=== PATIENT | male | born 1960 | race Caucasian/White ===

== ENCOUNTER 2016-08-23 19:41 | Inpatient (IN) | payer MEDICARE, BC ==
[~2016-08-23] VITALS: Ht 160 cm; Wt 72.1 kg
[~2016-08-23 19:41] MED LIST: ASPI81 PO; ATOR40TA28 PO; CLOP75 PO; HYDR50 PO; INSLAN SQ
[2016-08-23] MEDS ORDERED: ONDANSETRON HCL 4 MG/2 ML VIAL IVP ONE ×2 (20:45→23:00)
[2016-08-23 20:53] LABS: BASOPHILS % (AUTO) 0.6 % (0.0-2.0); EOSINOPHILS % (AUTO) 2.6 % (1.0-6.0); LYMPHOCYTES # (AUTO) 1.8 K/uL (1.0-4.8); LYMPHOCYTES % (AUTO) 19.3 % (22.0-44.0); MEAN CORPUSCULAR HGB CONC 34.3 G/dL (31.0-37.0); MEAN CORPUSCULAR VOLUME 99 fL (80-100); MONOCYTES # (AUTO) 1.2 K/uL (0.1-1.0); MONOCYTES % (AUTO) 12.6 % (2.0-9.0); NEUTROPHILS # (AUTO) 6.1 K/uL (1.8-7.7); NEUTROPHILS % (AUTO) 64.9 % (40.0-70.0); PLATELET COUNT (AUTO) 244 K/uL (150-450); RED BLOOD CELL COUNT(AUTO) 3.23 MIL/uL (4.50-5.90); RED CELL DISTRIBUTION WIDTH 14.4 % (11.5-14.5); WHITE BLOOD COUNT (AUTO) 9.3 K/uL (4.5-11.0)
[2016-08-23 21:08] LABS: CALCIUM, TOTAL 8.8 mg/dL (8.8-10.5); CREATININE 8.32 mg/dL (0.60-1.30); POTASSIUM 4.4 mmol/L (3.5-5.1)
[2016-08-23 21:13] LABS: ALBUMIN 3.7 g/dL (3.4-5.0); BILIRUBIN,TOTAL 0.5 mg/dL (0.1-1.0); TOTAL PROTEIN, SERUM 8.4 g/dL (6.4-8.2)
[2016-08-23] MEDS ORDERED: HYDROmorphone 2 MG/ML SYRINGE IVP ONE (22:00)
[2016-08-23] MEDS ORDERED: CloNIDine HCL 0.1 MG TABLET PO PRN (23:15)
[2016-08-23] MEDS ORDERED: ACETAMINOPHEN 325 MG TABLET PO PRN (23:15)
[2016-08-23] MEDS ORDERED: MAGNESIUM HYDROXIDE SUSPENSION 30 ML UDCUP PO PRN (23:15)
[2016-08-23] MEDS ORDERED: MORPHINE SULFATE 2 MG/ML SYRINGE IVP PRN (23:15)
[2016-08-23] MEDS ORDERED: OxyCODONE HCL/ACETAMINOPHEN 5-325 MG TABLET PO PRN (23:15)
[2016-08-23] MEDS ORDERED: ALBUTEROL SULFATE 2.5 MG/0.5 ML NEB SOLUTION NEB PRN (23:15)
[2016-08-23] MEDS ORDERED: ONDANSETRON HCL 4 MG/2 ML VIAL IVP PRN (23:15)
[2016-08-23] MEDS ORDERED: DEXTROSE 50%-WATER 25 GM/50 ML SYRINGE IVP PRN (23:30)
[2016-08-24 00:16] LABS: GLUCOSE,POINT OF CARE 296 MG/DL (70-110)
[2016-08-24] MEDS: INSULIN ASPART 100 UNITS/ML SQ PRN ×4 (00:24→17:56)
[2016-08-24 06:46] LABS: GLUCOSE,POINT OF CARE 249 MG/DL (70-110)
[2016-08-24 08:19] VITALS: BP 160/76
[2016-08-24] MEDS ORDERED: HEPARIN SODIUM,PORCINE 5,000 UNITS/ML VIAL SQ SCH ×2 (09:00)
[2016-08-24] MEDS ORDERED: PANTOPRAZOLE SODIUM 40 MG DR TABLET PO SCH (09:00)
[2016-08-24] MEDS ORDERED: ASPIRIN 81 MG CHEWABLE TABLET PO SCH (09:00)
[2016-08-24] MEDS ORDERED: HydrALAZINE HCL 25 MG TABLET PO SCH (09:00)
[2016-08-24] MEDS ORDERED: CLOPIDOGREL BISULFATE 75 MG TABLET PO SCH (09:00)
[2016-08-24] MEDS ORDERED: DOCUSATE SODIUM 100 MG CAPSULE PO SCH (09:00)
[2016-08-24 11:28] VITALS: BP 181/82
[2016-08-24 15:59] VITALS: BP 157/73
[2016-08-24 20:07] LABS: GLUCOSE COMMENT 1 Received Meds; GLUCOSE,POINT OF CARE 270 MG/DL (70-110)
[2016-08-24 20:07] LABS: GLUCOSE COMMENT 1 Received Meds; GLUCOSE,POINT OF CARE 275 MG/DL (70-110)
[2016-08-24] MEDS ORDERED: ATORVASTATIN CALCIUM 20 MG TABLET PO SCH (21:00)
== END 2016-08-24 19:00 | disposition home or self-care (01) | DRG 682 ==
LOC: EMS 19:43 → 5N 08-24 06:12
PROVIDERS: ADMIT Internal Medicine; ATTEND Internal Medicine
DX: I12.0 Hypertensive chronic kidney disease with stage 5 chronic kidney disease or end stage renal disease (principal); N18.6 End stage renal disease; I69.351 Hemiplegia and hemiparesis following cerebral infarction affecting right dominant side; R51 Headache; E11.22 Type 2 diabetes mellitus with diabetic chronic kidney disease; E78.00 Pure hypercholesterolemia, unspecified; E11.65 Type 2 diabetes mellitus with hyperglycemia; I69.392 Facial weakness following cerebral infarction; Z99.2 Dependence on renal dialysis; Z79.02 Long term (current) use of antithrombotics/antiplatelets; Z79.899 Other long term (current) drug therapy; Z79.4 Long term (current) use of insulin; Z79.82 Long term (current) use of aspirin; Z86.73 Personal history of transient ischemic attack (TIA), and cerebral infarction without residual deficits
CPT/HCPCS: 70450; 70551; 82962; 87081; 93005; 96374; 96375; 96376; 99285; J1170; J1644; J1815; J2405

== ENCOUNTER 2016-08-27 12:12 | Emergency (ER) | payer MEDICARE, BC ==
[~2016-08-27] VITALS: Ht 160 cm; Wt 72.7 kg
[~2016-08-27 12:12] MED LIST changes: -CLOP75 PO
[2016-08-27 12:16] VITALS: BP 169/65
[2016-08-27 12:27] LABS: GLUCOSE,POINT OF CARE 163 MG/DL (70-110)
== END 2016-08-27 15:01 | disposition left against medical advice (07) ==
LOC: EMS 12:15
DX: M54.5 Low back pain (principal); I10 Essential (primary) hypertension; E78.00 Pure hypercholesterolemia, unspecified; E11.29 Type 2 diabetes mellitus with other diabetic kidney complication; N28.9 Disorder of kidney and ureter, unspecified; Z86.73 Personal history of transient ischemic attack (TIA), and cerebral infarction without residual deficits; Z53.21 Procedure and treatment not carried out due to patient leaving prior to being seen by health care provider
CPT/HCPCS: 82962

== ENCOUNTER 2017-07-13 18:36 | Emergency (ER) | payer MEDICARE, BC ==
[~2017-07-13] VITALS: Ht 160 cm; Wt 75.0 kg
[~2017-07-13 18:36] MED LIST changes: +HYDR-2924 PO; -HYDR50 PO
[2017-07-13 18:49] VITALS: BP 184/72
[2017-07-13 19:36] LABS: GLUCOSE,POINT OF CARE 286 MG/DL (70-110)
== END 2017-07-14 | disposition left against medical advice (07) ==
LOC: EMS 18:37
DX: K59.00 Constipation, unspecified (principal); E11.9 Type 2 diabetes mellitus without complications; I10 Essential (primary) hypertension; E78.00 Pure hypercholesterolemia, unspecified; Z86.73 Personal history of transient ischemic attack (TIA), and cerebral infarction without residual deficits; Z53.21 Procedure and treatment not carried out due to patient leaving prior to being seen by health care provider
CPT/HCPCS: 82962

== ENCOUNTER 2019-04-05 21:27 | Emergency (ER) | payer MEDICARE, BC ==
[~2019-04-05] VITALS: Ht 160 cm; Wt 75.0 kg
[~2019-04-05 21:27] MED LIST changes: +AMLO10TA7 PO; +CLOP75TA3 PO; +FAMO20 PO; -INSLAN SQ; +NEBI5 PO; +PHOSLOC PO
[2019-04-05 21:53] VITALS: BP 167/78
[2019-04-05] MEDS ORDERED: SODI650T PO (22:07)
[2019-04-05 22:39] LABS: BASOPHILS % (AUTO) 0.6 % (0.0-2.0); EOSINOPHILS % (AUTO) 1.4 % (1.0-6.0); HEMATOCRIT 36.6 % (41-53); HEMOGLOBIN 12.4 g/dL (13.5-17.5); LYMPHOCYTES # (AUTO) 1.5 K/uL (1.0-4.8); MEAN CORPUSCULAR HEMOGLOBIN 32.2 pg (26.0-34.0); MEAN CORPUSCULAR VOLUME 95 fL (80-100); MONOCYTES # (AUTO) 1.2 K/uL (0.1-1.0); MONOCYTES % (AUTO) 10.2 % (2.0-9.0); NEUTROPHILS # (AUTO) 8.5 K/uL (1.8-7.7); NEUTROPHILS % (AUTO) 74.8 % (40.0-70.0); PLATELET COUNT (AUTO) 211 K/uL (150-450); RED BLOOD CELL COUNT(AUTO) 3.86 MIL/uL (4.50-5.90); RED CELL DISTRIBUTION WIDTH 13.2 % (11.5-14.5)
[2019-04-05 22:54] LABS: CALCIUM, TOTAL 9.5 mg/dL (8.8-10.5); CREATININE 8.36 mg/dL (0.60-1.30); POTASSIUM 4.4 mmol/L (3.5-5.1)
[2019-04-05 23:03] LABS: ALBUMIN 3.8 g/dL (3.4-5.0); BILIRUBIN,TOTAL 0.5 mg/dL (0.1-1.0); TOTAL PROTEIN, SERUM 7.8 g/dL (6.4-8.2)
== END 2019-04-06 01:17 | disposition left against medical advice (07) ==
LOC: EMS 21:28
DX: R11.2 Nausea with vomiting, unspecified (principal); Z53.21 Procedure and treatment not carried out due to patient leaving prior to being seen by health care provider

== ENCOUNTER 2022-08-25 00:36 | Emergency (ER) | payer MEDICARE, BC ==
[~2022-08-25] VITALS: Ht 167.6 cm; Wt 79.5 kg
[~2022-08-25 00:36] MED LIST changes: +AMLO-258 PO; -AMLO10TA7 PO; +ASPI-1450 PO; -ASPI81 PO; -CLOP75TA3 PO; +CLOP75TA60 PO; -HYDR-2924 PO; +HYDR50TA36 PO; -NEBI5 PO; +NEBI5TAB2 PO; +SODI650T33 PO
[2022-08-25] MEDS ORDERED: INSNOV SQ (00:47)
[2022-08-25 00:57] VITALS: BP 138/65
[2022-08-25] MEDS ORDERED: HYDROCODONE/ACETAMINOPHEN 5-325 MG TABLET PO ONE (01:30)
== END 2022-08-25 02:13 | disposition left against medical advice (07) ==
LOC: EMS 00:37
DX: M79.652 Pain in left thigh (principal); E11.9 Type 2 diabetes mellitus without complications; E78.00 Pure hypercholesterolemia, unspecified; I10 Essential (primary) hypertension; Z98.890 Other specified postprocedural states
CPT/HCPCS: 82962; 99283

== ENCOUNTER 2023-03-06 12:47 | Emergency (ER) | payer MEDICARE, BC ==
[~2023-03-06] VITALS: Ht 172.7 cm; Wt 109.1 kg
[~2023-03-06 12:47] MED LIST changes: -AMLO-258 PO; -ASPI-1450 PO; -FAMO20 PO; +INSNOV SQ; -NEBI5TAB2 PO
[2023-03-06 13:00] VITALS: BP 0/0; PULSE 0; RESP 0
[2023-03-06 13:51] LABS: ALBUMIN 2.4 g/dL (3.4-5.0); BASOPHILS % (AUTO) 0.6 % (0.0-2.0); BILIRUBIN,TOTAL 0.6 mg/dL (0.1-1.0); CALCIUM, TOTAL 9.8 mg/dL (8.8-10.5); CREATININE 6.54 mg/dL (0.60-1.30); EOSINOPHILS % (AUTO) 0.1 % (1.0-6.0); HEMATOCRIT 31.5 % (41-53); HEMOGLOBIN 10.1 g/dL (13.5-17.5); MEAN CORPUSCULAR HEMOGLOBIN 33.4 pg (26.0-34.0); MEAN CORPUSCULAR VOLUME 104 fL (80-100); MONOCYTES # (AUTO) 1.4 K/uL (0.1-1.0); MONOCYTES % (AUTO) 8.5 % (2.0-9.0); NEUTROPHILS # (AUTO) 10.1 K/uL (1.8-7.7); NEUTROPHILS % (AUTO) 60.8 % (40.0-70.0); PLATELET COUNT (AUTO) 105 K/uL (150-450); RED BLOOD CELL COUNT(AUTO) 3.02 MIL/uL (4.50-5.90); RED CELL DISTRIBUTION WIDTH 16.4 % (11.5-14.5); TOTAL PROTEIN, SERUM 5.9 g/dL (6.4-8.2)
[2023-03-06 14:47] LABS: COVID AG,FIA SOURCE NASAL SWAB
== END 2023-03-06 18:41 ==
LOC: EMS 12:48
DX: I46.9 Cardiac arrest, cause unspecified (principal); E78.00 Pure hypercholesterolemia, unspecified; E11.22 Type 2 diabetes mellitus with diabetic chronic kidney disease; I12.0 Hypertensive chronic kidney disease with stage 5 chronic kidney disease or end stage renal disease; N18.6 End stage renal disease; Z99.2 Dependence on renal dialysis; Z98.890 Other specified postprocedural states; Z20.822 Contact with and (suspected) exposure to COVID-19
CPT/HCPCS: 80053; 82550; 83880; 84484; 85025; 92950; 99291